=== PATIENT | female | born 1975 | race Caucasian/White ===

== ENCOUNTER 2017-02-01 17:31 | Emergency (ER) | payer BC ==
[~2017-02-01] VITALS: Ht 160 cm; Wt 51.2 kg
--- NOTE | 2017-02-01 17:55 | NUR ---
Griselda salas in ED - 02/01/17 at 1807 by RENZO PT WAS EVALUATED BY DR HALL. PT WAS D/C TO HOME. D/C INSTRUCTIONS GIVEN TO THE PT's FATHER.
[2017-02-01] MEDS ORDERED: TDAP DIPH,PERTUSS,TET VAC/PF 0.5 ML DISP.SYRIN IM ONE ×2 (19:00→19:30)
--- NOTE | 2017-02-01 19:15 | NUR ---
PT WAS D/C TO HOME. D/C INSTRUCTIONS GIVEN TO THE PT. NO BLEEDING. DRESSING ID INTACT.
[2017-02-01 19:16] VITALS: BP 121/69
== END 2017-02-01 19:34 | disposition home or self-care (01) ==
LOC: ER 17:36
DX: S66.922A Laceration of unspecified muscle, fascia and tendon at wrist and hand level, left hand, initial encounter (principal); X58.XXXA Exposure to other specified factors, initial encounter; Y93.89 Activity, other specified; Y99.8 Other external cause status; Y92.89 Other specified places as the place of occurrence of the external cause
CPT/HCPCS: 12032; 90471; 90715; 99284; A4217; A4663; J3490